=== PATIENT | female | born 1980 | race African-American/Black ===

== ENCOUNTER 2020-04-22 11:23 | Emergency (ER) | payer OTHER ==
[~2020-04-22] VITALS: Ht 170.2 cm; Wt 63.5 kg
[2020-04-22 12:01] LABS: URINE BILIRUBIN NEGATIVE (Negative); URINE BLOOD NEGATIVE (Negative); URINE CLARITY CLEAR; URINE COLOR YELLOW; URINE GLUCOSE-RANDOM* NEGATIVE (Negative); URINE KETONES NEGATIVE (Negative); URINE LEUKOCYTES-REFLEX NEGATIVE (Negative); URINE NITRITE-REFLEX NEGATIVE (Negative); URINE PROTEIN (DIPSTICK) 1+ (Negative)
[2020-04-22 12:02] LABS: ABSOLUTE NEUTROPHILS 11.1 thou/uL (1.4-8.2); BASOPHILS 0.3 % (0.0-2.0); EOSINOPHILS 0.1 % (0.0-3.0); HEMATOCRIT 37.5 % (37.0-47.0); HEMOGLOBIN 12.7 gm/dL (12.0-15.0); LYMPHOCYTES 6.3 % (24.0-44.0); MCH 32.8 pg (26.0-34.0); MCHC 33.9 g/dL (28.0-37.0); MCV 96.8 fL (80.0-100.0); MONOCYTES 4.8 % (1.0-8.0); PLATELET COUNT 267 thou/uL (150-400); POLYS 88.5 % (36.0-66.0); RBC 3.87 mil/uL (4.20-5.00); RDW 12.5 % (10.5-14.5); WBC 12.6 thou/uL (4.0-11.0)
[2020-04-22 12:14] LABS: CALCIUM 8.5 mg/dL (8.5-10.1); POTASSIUM 4.1 mmol/L (3.5-5.1)
[2020-04-22 12:20] LABS: TOTAL BILIRUBIN 0.7 mg/dL (0.2-1.0); TOTAL PROTEIN 7.2 g/dL (6.4-8.2)
[2020-04-22 12:58] LABS: BACTERIA-REFLEX 1-9 Few /HPF (None Seen); CASTS None Seen /LPF (None Seen); CRYSTALS None Seen /LPF (None Seen); SQUAMOUS 4-10 Moderate /LPF (0-3); URINE RBC None Seen /HPF (0-2); URINE WBC-REFLEX 0-5 Rare /HPF (0-5)
[2020-04-22] MEDS ORDERED: MACROBID 100 M100 M1 PO (15:09)
[2020-04-22] MEDS ORDERED: FLAGYL500 M1 PO (15:09)
[2020-04-22] MEDS ORDERED: NORCO 7.5-3251 EACH PO (15:09)
[2020-04-22 15:36] VITALS: BP 98/63
== END 2020-04-22 15:37 | disposition home or self-care (01) ==
LOC: ER 11:23
PROVIDERS: Physician Assistant
DX: N76.0 Acute vaginitis (principal); B96.89 Other specified bacterial agents as the cause of diseases classified elsewhere; N39.0 Urinary tract infection, site not specified; R19.7 Diarrhea, unspecified; M79.604 Pain in right leg